=== PATIENT | female | born 1995 | race Caucasian/White ===

== ENCOUNTER 2020-10-10 16:12 | Observation (INO) | payer OTHER, SELFPAY ==
[2020-10-10 16:39] VITALS: BP 137/94; PULSE 124; RESP 20; TEMP 36.9; O2SAT 99; BMI 29.2
[2020-10-10 20:15] VITALS: BP 121/71; PULSE 74; RESP 14; O2SAT 99
[2020-10-10 20:40] LABS: Add Manual Diff / Slide Review NO; Basophils Absolute Auto 100 /uL (0-100); Basophils Percent Auto 0.9 % (0-2); Eosinophils Absolute Auto 600 /uL (0-450); Eosinophils Percent Auto 4.9 % (2-4); Hematocrit 38.5 % (36-46); Hemoglobin 12.8 g/dL (12.0-16.0); Lymphocytes Absolute Auto 4900 /uL (1100-4500); Lymphocytes Percent Auto 41.6 % (25-40); Mean Corpuscular HGB Conc 33.4 % (30-36); Mean Corpuscular Hemoglobin 28.9 PG (26-34); Mean Corpuscular Volume 86.4 fL (80-100); Monocytes Absolute Auto 800 /uL (0-900); Monocytes Percent Auto 6.4 % (3-14); Neutrophils Absolute Auto 5500 /uL (1500-7000); Neutrophils Percent Auto 46.2 % (50-75); Platelet Count 338 X10^3/uL (150-400); Prothrombin Time 11.1 SECONDS (10.1-12.7); Red Blood Cell Count 4.45 X10^6/uL (4.0-5.2); White Blood Cell Count 11.8 X10^3/uL (4.5-11.0)
[2020-10-10 20:42] LABS: PTT Partial Thromboplastin Tim 35 SECONDS (26.4-36.2)
[2020-10-10 20:44] LABS: Alanine Aminotransferase 15 IU/L (<35); Albumin 4.7 g/dL (3.5-5.0); Albumin Globulin Ratio 1.3 (1.0-2.8); Alkaline Phosphatase 76 U/L (38-126); Aspartate Aminotransferase 25 IU/L (14-36); BUN Creatinine Ratio 17.2 (6-22); Bilirubin Total 0.3 mg/dL (0.2-1.3); Blood Urea Nitrogen 11 mg/dL (7-17); Calcium 9.8 mg/dL (8.4-10.2); Carbon Dioxide 25 mmol/L (22-32); Chloride 104 mmol/L (98-107); Estimated Glomerular Filt Rate > 60.0 mL/min (>60); Globulin 3.5 g/dL (1.7-4.1); Glucose 81 mg/dL (70-100); HEMOLYSIS < 15 (0-50); Lipase 57 U/L (23-300); Potassium 3.7 mmol/L (3.4-5.1); Sodium 137 mmol/L (137-145); Total Protein 8.2 g/dL (6.3-8.2)
[2020-10-10 21:41] LABS: RBC Urine None Seen (0-5/HPF)
[2020-10-10 21:48] LABS: Squamous Epithelial Cell Urine 1-5 /HPF (0-5/HPF); WBC Urine 1-5/HPF (0-5/HPF)
[2020-10-10 21:49] LABS: Bacteria Urine Many (>30); Calcium Oxalate Crystals Urine Few; Culture Indicated Urine Specimen Cultured
--- NOTE | 2020-10-10 21:57 | DI.CT.S_ITS ---
PROCEDURE: CT ABDOMEN PELVIS W CON INDICATIONS: rlq pain TECHNIQUE: After the administration of intravenous contrast, 5 mm thick sections acquired from the diaphragm to the symphysis. 5 mm coronal and sagittal reformats were acquired. For radiation dose reduction, the following was used: automated exposure control, adjustment of mA and/or kV according to patient size. COMPARISON: [facility], MR, MR LUMBAR SPINE WITHOUT CONTRAST, 11/15/2017, 12:29. FINDINGS: Image quality: Excellent. ABDOMEN: Lung bases: 4 millimeter left lower lobe pulmonary nodule (series 3; image 6). In addition there is a perifissural 3 millimeter nodule within the right middle lobe (3; 9) which may represent a lymph node. The lung bases are otherwise clear. Heart size is normal. Solid organs: Liver is normal in size and enhancement. Gallbladder is unremarkable. Biliary system is non dilated. Pancreas enhances normally. Spleen is normal in size and enhancement. Small splenule. No adrenal nodules. Kidneys demonstrate normal size and enhancement, without hydronephrosis. Peritoneum and bowel: Stomach and small bowel are unremarkable without evidence of obstruction, focal wall thickening, or surrounding inflammation. The appendix is noted to be enlarged at 9 millimeters. No significant adjacent inflammation or fluid collection. Moderate stool burden. Nodes and vessels: No retroperitoneal or mesenteric adenopathy by size criteria. Aorta and inferior vena cava are normal in size. Miscellaneous: No ventral hernias. PELVIS: Genitourinary: Bladder wall thickness is normal. 2.4 and 2.2 centimeter cystic lesions within the right ovary. Miscellaneous: No inguinal hernias or adenopathy. Bones: No suspicious bony lesions. No vertebral body compression fractures. IMPRESSION: Dilated appendix measuring 9 millimeters without significant adjacent inflammation. This is suggestive of early appendicitis. 2.4 and 2.2 centimeter right ovarian cystic lesions. Agree with preliminary report. Dictated by: Joseph Weaver D.O. on 10/11/2020 at 7:36 Approved by: Joseph Weaver D.O. on 10/11/2020 at 7:44
--- NOTE | 2020-10-10 22:31 | ED_ITS ---
HPI - Abdominal Pain General Chief Complaint: Abdominal Pain Stated Complaint: sharp pains right side Time Seen by Provider: 10/10/20 21:56 Source: patient Mode of arrival: Family Vehicle Limitations: no limitations History of Present Illness HPI narrative: Patient is a 25-year-old healthy female who complaints of a bdominal pain that started yesterday. She says that it started around her umbilicus is and has progressed to her right lower quadrant today. She has had decreased appetite but is able to eat lunch today around 130. She denies any nausea or vomiting and is currently afebrile. She denies any painful or frequent urination and no flank pain. MD complaint: abdominal pain Onset (ago): day(s) Location: RLQ Severity: moderate Quality: aching and sharp Related Data Allergies Allergy/AdvReac Type Severity Reaction Status Date / Time No Known Drug Allergies Allergy Verified 10/10/20 16:39 Review of Systems Review of Systems Narrative: GENERAL: Denies chills, fatigue, malaise, fever, sweats, travel HEENT: Denies sinus pain, ear pain, sore throat, difficulty swallowing, neck pain RESPIRATORY: Denies dyspnea, cough, wheezing, hemoptysis, sputum. CARDIOVASCULAR: Denies chest pain, palpitations, orthopnea, edema GASTROINTESTINAL: See HPI : Denies dysuria, frequency, incontinence, hematuria, urinary retention, flank pain. MUSCULOSKELETAL: Denies weakness, joint pain, or bony pain SKIN: No rash, no erythema, no pruritus NEUROLOGIC: Denies weakness, dizziness, headache, numbness, change in speech, confusion PSYCHIATRIC: No concerning psychosocial issues. 12 point review of systems is negative except for those stated above and HPI Patient History Medical History Patient denies medical problems Social History Smoking Status: Current every day smoker Smoking Status: Current every day smoker tobacco type: cigarettes alcohol intake frequency: holidays/special occasions only Substance Use Type: does not use Exam Initial Vital Signs Initial Vital Signs: Vital Signs Temperature 98.5 F 10/10/20 16:39 Pulse Rate 124 H 10/10/20 16:39 Respiratory Rate 20 10/10/20 16:39 Blood Pressure 137/94 H 10/10/20 16:39 Pulse Oximetry 99 05/01/21 16:39 GENERAL: alert well-appearing 25-year-old female in no acute distress HEENT: Head atraumatic,EOMI, pupils reactive, face symmetric, [moist] mucous membranes CARDIOVASCULAR: Regular rate and rhythm without murmurs, rubs or gallops. RESPIRATORY: Breath sounds equal bilaterally, no wheezes rales or rhonchi. ABDOMEN: Soft, tender right lower quadrant, positive Rovsing sign, negative Lerner sign no right upper quadrant pain EXTREMITIES: Normal range of motion, no clubbing or edema. Neurovascularly intact NEUROLOGICAL: Alert and oriented x4.Normal gait and speech. SKIN: Warm, dry, no laceration, no petechiae, no rashes or lesions. Course Orders Ordered: ED Orders 10/10/20 19:53 Complete Blood Count AUTO DIFF Stat Comprehensive Metabolic Panel Stat Lipase Stat Partial Thromboplastin Time Stat Prothrombin Time INR Stat 10/10/20 21:33 Urine Culture Stat Urine Microscopic Stat 10/10/20 21:57 CT abdomen pelvis w con Stat Discontinued Medications Piperacillin/Tazobactam/Dextrose (Zosyn) 4.5 gm in 100 mls @ 200 mls/hr IV NOW JANETTE Piperacillin Sod/Tazobactam (Sod 4.5 gm/ Sodium Chloride) 100 mls @ 200 mls/hr IV NOW ONE Stop: 10/10/20 23:59 Last Admin: 10/10/20 23:38 Dose: 200 mls/hr Documented by: KELSIE Morphine Sulfate (Morphine 2 Mg/Ml Inj) 2 mg IV NOW ONE Stop: 10/10/20 21:58 Last Admin: 10/10/20 22:37 Dose: 2 mg Documented by: KELSIE Vital Signs Vital signs: Vital Signs - 8 hr 10/10/20 16:39 10/10/20 20:15 Temperature 98.5 F Pulse Rate 124 H 74 Respiratory Rate 20 14 Blood Pressure 137/94 H 121/71 Pulse Oximetry 99 99 MDM - Abdominal Pain Lab Data Attestation: I reviewed the patient's lab results. Result diagrams: 10/10/20 19:53 10/10/20 19:53 Labs: Lab Results 10/10/20 10/10/20 10/10/20 Range/Units 19:53 19:53 19:53 WBC 11.8 H (4.5-11.0) X10^3/uL RBC 4.45 (4.0-5.2) X10^6/uL Hgb 12.8 (12.0-16.0) g/dL Hct 38.5 (36-46) % MCV 86.4 (80-100) fL MCH 28.9 (26-34) PG MCHC 33.4 (30-36) % RDW 13.0 (11.6-14.8) % Plt Count 338 (150-400) X10^3/uL Neut % (Auto) 46.2 L (50-75) % Lymph % (Auto) 41.6 H (25-40) % [place] % (Auto) 6.4 (3-14) % Eos % (Auto) 4.9 H (2-4) % Baso % (Auto) 0.9 (0-2) % Neut # (Auto) 5500 (4995-3524) /uL Lymph # (Auto) 4900 H (7029-5331) /uL [place] # (Auto) 800 (0-900) /uL Eos # (Auto) 600 H (0-450) /uL Baso # (Auto) 100 (0-100) /uL PT 11.1 (10.1-12.7) SECONDS INR 1.0 (0.9-1.3) APTT 35 (26.4-36.2) SECONDS Sodium 137 (137-145) mmol/L Potassium 3.7 (3.4-5.1) mmol/L Chloride 104 (98-107) mmol/L Carbon Dioxide 25 (22-32) mmol/L BUN 11 (7-17) mg/dL Creatinine 0.64 (0.52-1.04) mg/dL Estimated GFR > 60.0 (>60) mL/min BUN/Creatinine Ratio 17.2 (6-22) Glucose 81 (70-100) mg/dL Calcium 9.8 (8.4-10.2) mg/dL Total Bilirubin 0.3 (0.2-1.3) mg/dL AST 25 (14-36) IU/L ALT 15 (<35) IU/L Alkaline Phosphatase 76 (38-126) U/L Total Protein 8.2 (6.3-8.2) g/dL Albumin 4.7 (3.5-5.0) g/dL Globulin 3.5 (1.7-4.1) g/dL Albumin/Globulin Ratio 1.3 (1.0-2.8) Lipase 57 (23-300) U/L Urine RBC (0-5/HPF) Urine WBC (0-5/HPF) Ur Squamous Epith Cells (0-5/HPF) Calcium Oxalate Crystal Urine Bacteria (None) Ur Culture Indicated? 10/10/20 Range/Units 21:33 WBC (4.5-11.0) X10^3/uL RBC (4.0-5.2) X10^6/uL Hgb (12.0-16.0) g/dL Hct (36-46) % MCV (80-100) fL MCH (26-34) PG MCHC (30-36) % RDW (11.6-14.8) % Plt Count (150-400) X10^3/uL Neut % (Auto) (50-75) % Lymph % (Auto) (25-40) % [place] % (Auto) (3-14) % Eos % (Auto) (2-4) % Baso % (Auto) (0-2) % Neut # (Auto) (2432-0924) /uL Lymph # (Auto) (3456-7930) /uL [place] # (Auto) (0-900) /uL Eos # (Auto) (0-450) /uL Baso # (Auto) (0-100) /uL PT (10.1-12.7) SECONDS INR (0.9-1.3) APTT (26.4-36.2) SECONDS Sodium (137-145) mmol/L Potassium (3.4-5.1) mmol/L Chloride (98-107) mmol/L Carbon Dioxide (22-32) mmol/L BUN (7-17) mg/dL Creatinine (0.52-1.04) mg/dL Estimated GFR (>60) mL/min BUN/Creatinine Ratio (6-22) Glucose (70-100) mg/dL Calcium (8.4-10.2) mg/dL Total Bilirubin (0.2-1.3) mg/dL AST (14-36) IU/L ALT (<35) IU/L Alkaline Phosphatase (38-126) U/L Total Protein (6.3-8.2) g/dL Albumin (3.5-5.0) g/dL Globulin (1.7-4.1) g/dL Albumin/Globulin Ratio (1.0-2.8) Lipase (23-300) U/L Urine RBC None seen (0-5/HPF) Urine WBC 1-5/hpf (0-5/HPF) Ur Squamous Epith Cells 1-5 /hpf (0-5/HPF) Calcium Oxalate Crystal Few H Urine Bacteria Many (>30) H (None) Ur Culture Indicated? Specimen cultured Point of care testing: Point of Care Testing Test Results Negative Urine Dip Bedside Urine Glucose Negative Bedside Urine Bilirubin - Negative Bedside Urine Ketone +/- 5 Urine Specific [place] 1.030 Bedside Urine Occult Blood - Negative Bedside Urine pH 6 Bedside Urine Protein - Negative Bedside Urine Urobilinogen - Negative Bedside Urine Nitrite + Positive Bedside Urine Leukocytes - Negative Esterase Imaging Data CT scan - abdomen/pelvis: Radiologist's Impression: Preliminary report: 2.6 and 2.5 cm dilated complex right ovarian cyst. At 9 mm dilated appendix suggesting early acute appendicitis. MDM Narrative Medical decision making narrative: 11:[address] Pena updated patient's s ymptoms and test results agrees with observation and Zosyn Discharge Plan Departure Patient Disposition: Admitted as Observation Admit Date/Time: 10/10/20 22:59 Admit Provider: Jerod Pena
[2020-10-10] MEDS: MORPHINE 2 MG/ML INJ IV (22:37)
[2020-10-10] MEDS: PIPERACILLIN/TAZO 4.5 GM in SODIUM CHLORIDE 0.9% 100 ML 200 ML IV (23:38)
[2020-10-10 23:57] VITALS: BP 119/81; PULSE 93; RESP 16; O2SAT 93
[2020-10-11] VITALS (17 sets, daily range): BP systolic 105–131; BP diastolic 61–82; PULSE 78–119; RESP 8–22; TEMP 36.1–37.1; O2SAT 95–100; BMI 22.9
--- NOTE | 2020-10-11 | PATH_ITS ---
[facility] Accession Number: [id number] . 01 Material submitted: . appendix - APPENDIX . 02 Diagnosis: Appendix, Appendectomy: Mild acute appendicitis. No evidence of neoplasm. [facility] 10/16/2020 1115 Local . 02 Electronically signed: . Nahun Dallas MD, PhD, Pathologist NPI- [id number] . 01 Gross description: . The specimen is received in formalin, labeled appendix and consists of a 6.5 cm in length by 1.0 cm in diameter vermiform appendix with attached varela-yellow lobulated mesoappendix measuring 4.0 x 1.5 x 0.8 cm. The serosa is varela-pink and smooth. Sectioning reveals a varela mucosa and a lumen measuring 0.5 cm in diameter. The vermiform appendix is entirely submitted to include the en face margin (blue) and bisected tip in cassettes A1-A4. ([id number]) /[facility] 10/13/2020 1609 Local . 02 Pathologist provided ICD-10: K35.80 . 02 CPT . 379043 Performed at: 01 [facility] [address] [place] [address], [place], [place] [id number] MD Jin Vasquez MD Phone: [phone] Performed at: 02 [facility] [address] [place], [place] [id number] MD Indu Horton MD Phone: [phone]
[2020-10-11] MEDS: SODIUM CHLORIDE 0.9% 1,000 ML 125 ML IV (01:21)
[2020-10-11] MEDS: MORPHINE 2 MG/ML INJ IV ×3 (01:27→06:50)
[2020-10-11 01:33] LABS: COVID19 - ADMIT (NP swab/PCR) Negative (Negative)
[2020-10-11] MEDS: NICOTINE 21 MG PATCH TOP (02:42)
[2020-10-11] MEDS: ONDANSETRON 4 MG/2 ML INJ IV ×2 (04:42→11:00)
[2020-10-11] MEDS: ACETAMINOPHEN 325 MG TABLET 975 MG PO (08:40)
--- NOTE | 2020-10-11 09:04 | P.HP_ITS ---
History of Present Illness History of Present Illness Date Patient Seen: 10/11/20 Time Patient Seen: 09:06 Chief complaint: sharp pains right side Narrative: 25-year-old female admitted to the hospital for acute appendicitis. She developed abdominal pain located at her umbilicus which progressed to her right lower quadrant. She presented to the emergency room last night laboratory studies demonstrated leukocytosis of 12 remainder of her labs were unremarkable. CT abdomen pelvis demonstrates acute appendicitis without abscess or free air. She received IV fluids and Zosyn in the emergency room. No prior surgical history. Patient History Medical History Patient denies medical problems Family & Social History Social History: household members significant other Prior Living Arrangements House Safety & Behavioral: Feels Safe in Current Yes Environment Been Physically Hurt or No Threatened By a Person Suicidal Ideation Description None Suicide Plan Description No Plan Tobacco & Substance use: Tobacco type cigarettes Smoking Status Current every day smoker Smoking packs per day 1.0 alcohol intake current alcohol intake frequency holiday/special occasion Substance Use Type does not use Meds Home Medications and Allergies Home Medications Medication Instructions Recorded Confirmed Type No Known Home Medications 10/11/20 10/11/20 History Allergies Allergy/AdvReac Type Severity Reaction Status Date / Time No Known Drug Allergies Allergy Verified 10/10/20 16:39 Review of Systems Review of Systems ROS: Yes All systems reviewed with the patient and are negative except as otherwise documented Exam Vital Signs (past 8 hours): - 10/11/20 04:08 10/11/20 08:25 Temperature 97.9 F 98.7 F Pulse Rate 78 95 H Respiratory Rate 16 14 Blood Pressure 118/73 114/73 Pulse Oximetry 98 99 Oxygen Delivery Method Room Air Oxygen Flow Rate 0 Narrative Exam Narrative: GENERAL-well developed adult woman, no acute distress HEENT-no scleral icterus, hearing intact NECK-no JVD, trachea midline CVS- regular rate, no peripheral edema RESP-unlabored respiratory effort, no audible wheezing GI-tender right lower quadrant no peritonitis MSK-no cyanosis or clubbing, extremities without deformity SKIN-warm, dry NEURO-alert and oriented, no focal deficits PYSCH-Appropriate mood and affect Objective Labs Result Diagrams: 10/10/20 19:53 10/10/20 19:53 Labs: Laboratory Results - last 24 hr 10/10/20 10/10/2021 19:53 19:53 19:53 WBC 11.8 H RBC 4.45 Hgb 12.8 Hct 38.5 MCV 86.4 MCH 28.9 MCHC 33.4 RDW 13.0 Plt Count 338 Neut % (Auto) 46.2 L Lymph % (Auto) 41.6 H [place] % (Auto) 6.4 Eos % (Auto) 4.9 H Baso % (Auto) 0.9 Neut # (Auto) 5500 Lymph # (Auto) 4900 H [place] # (Auto) 800 Eos # (Auto) 600 H Baso # (Auto) 100 PT 11.1 INR 1.0 APTT 35 Sodium 137 Potassium 3.7 Chloride 104 Carbon Dioxide 25 BUN 11 Creatinine 0.64 Estimated GFR > 60.0 BUN/Creatinine Ratio 17.2 Glucose 81 Calcium 9.8 Total Bilirubin 0.3 AST 25 ALT 15 Alkaline Phosphatase 76 Total Protein 8.2 Albumin 4.7 Globulin 3.5 Albumin/Globulin Ratio 1.3 Lipase 57 Urine RBC Urine WBC Ur Squamous Epith Cells Calcium Oxalate Crystal Urine Bacteria Ur Culture Indicated? SARS-CoV-2 (PCR) 10/10/20 10/11/20 21:33 00:38 WBC RBC Hgb Hct MCV MCH MCHC RDW Plt Count Neut % (Auto) Lymph % (Auto) [place] % (Auto) Eos % (Auto) Baso % (Auto) Neut # (Auto) Lymph # (Auto) [place] # (Auto) Eos # (Auto) Baso # (Auto) PT INR APTT Sodium Potassium Chloride Carbon Dioxide BUN Creatinine Estimated GFR BUN/Creatinine Ratio Glucose Calcium Total Bilirubin AST ALT Alkaline Phosphatase Total Protein Albumin Globulin Albumin/Globulin Ratio Lipase Urine RBC None seen Urine WBC 1-5/hpf Ur Squamous Epith Cells 1-5 /hpf Calcium Oxalate Crystal Few H Urine Bacteria Many (>30) H Ur Culture Indicated? Specimen cultured SARS-CoV-2 (PCR) Negative Assessment & Plan Assessment and plan (1) Acute appendicitis: Qualifiers: Acute appendicitis type: with localized peritonitis Appendicitis abscess presence: without abscess Appendicitis gangrene presence: without gangrene Appendicitis perforation presence: without perforation Qualified Code(s): K35.30 - Acute appendicitis with localized peritonitis, without perforation or gangrene Status: Acute Assessment & Plan narrative: 25-year-old healthy female with acute appendicitis. CT abdomen pelvis and laboratory studies reviewed demonstrates acute appendicitis without abscess and mild leukocytosis.. -laparoscopic appendectomy Discussed the nature of acute appendicitis and is management including both medical and operative. Recommended that we proceed with a laparoscopic appendectomy. Technical details of the procedure were discussed with the patient. Operative risks including bleeding, infection, damage to surrounding structures, conversion to open were discussed. Her questions have been answered and she is in agreement with this plan. Quality VTE Deep Vein Thrombosis/Pulmonary Embolism Present on Admission: No
--- NOTE | 2020-10-11 09:05 | PC.NURSE ---
Addendum entered by Eda Shanks R.N. 10/11/20 12:28: Received report from Zeenat MISHRA in PACU. At 1148 pt returned to floor from PACU. Awake and alert, reports a decrease in pain compared to pre-op, 11/19. Abdomen has 3 lap sites, covered in steri strips. Tolerating fluids and snacks, no nausea. Call light in reach, boyfriend at bedside. Original Note: Informed receiving RN of pt's anxiousness for surgery, prior to entering pt's room. Pt left via bed to pre-op unit accompanied by TAD Epperson. Boyfriend stayed in pt room.
[2020-10-11] MEDS: SCOPOLAMINE 1 PATCH TOP (09:12)
[2020-10-11] MEDS: LACTATED RINGERS 1,000 ML 42 ML IV (09:22)
[2020-10-11] MEDS: PIPERACILLIN-TAZO 3.375 GM/50 ML FROZ.PIGGY IV (09:30)
--- NOTE | 2020-10-11 09:49 | SUR.OPER ---
Supine on padded OR bed, head on pillow, left arm padded and tucked at side, right arm <90 degrees on padded armboard. Legs uncrossed, safety belt at thigh, tape over blanket over lower legs .
[2020-10-11] MEDS: BUPIVACAINE 0.25% (PF) VIAL 30 ML INJ (10:03)
--- NOTE | 2020-10-11 10:37 | PM.OP.1 ---
Operative Date/Time/Diagnoses Date of procedure: 10/11/20 Time of procedure: 10:37 Pre-op diagnosis: Acute appendicitis Post-op diagnosis: same Procedure & Clinicians Procedure: Laparoscopic appendectomy Same procedure as scheduled: Yes Indications: Acute appendicitis Surgeon: Jerod Pena Click Yes if Unassisted: Yes Anesthesia Type: General Operative Notes Findings: Acute non perforated appendicitis Specimen(s): other (Appendix) Estimated Blood Loss (mL): 10 Procedure in detail: Patient was brought to the operating room placed supine on the table. Bilateral lower extremity compression devices were applied. Anesthesia was induced and they intubated with an endotracheal tube. They received 3.375 g of Zosyn prior to skin incision. The left arm was tucked and appropriately padded. They were prepped and draped in sterile fashion. Time-out was performed. An infraumbilical incision was made the umbilical stalk was grasped and elevated and incision was made and the abdomen was entered atraumatically. A 12 mm balloon trocar was then placed through the incision and pneumoperitoneum of 14 mm Hg was established. The scope was then inserted and the abdomen inspected, there was no evidence of injury upon entry. Two 5 mm ports were placed under direct visualization, one in the left lower quadrant and second in the lower midline. A thorough laparoscopic evaluation was performed inspecting all four quadrants. The patient was then tilted right side up. The small bowel was then swept to the upper aspect of the abdomen. The tenie were followed to the base of the cecum where the appendix was identified. The appendix was was mobilized from its lateral attachments. It was acutely inflamed but not perforated. The appendix was grasped and a window within the mesentery was made at the base of the appendix using the [place] dissector with care to avoid injuring the cecum. The mesoappendix was then divided using the endo-stapler with a staple length of 2.5 mm-white load. The mesenteric staple line was inspected for hemostasis. The appendix was then amputated flush at the cecum using the endo-stapler blue load. The specimen was retrieved through the 10 mm infra-umbilical port. The right paracolic gutter and the pouch of Mk were irrigated The 5 mm ports were then removed under direct visualization. The umbilical fascial incision was closed with 0 Vicryl in a figure-eight fashion. The skin wounds were irrigated and closed with 4-0 Monocryl followed by the application of Dermabond. Sponge instrument count at the end of the operation was correct. The patient tolerated procedure well was extubated and transferred to the postoperative care unit in stable condition. Complications: none Post-operative Condition: stable Disposition: same day surgery
[2020-10-11] MEDS: HYDROMORPHONE 2 MG INJ IV ×2 (11:00→11:11)
--- NOTE | 2020-10-11 11:10 | CM.IDA ---
Initial DCP Assessment Note Pt is a 25 yo female, resident of [place], presented w/abd pain last night, now just through a lap appy w/ Dr Pena PCP: Not listed Payer: Gino Reviewed chart, patient off the floor this morning in the OR. Pt discussed in multidisciplinary rounds this morning. Patient expected to return home later this afternoon w/S.O. Patient 25 yo. indp and active at baseline. No needs expected from DC planning team although will remain available in case this changes today. IVETT Hoyt Discharge Planning/Care Management CM Discharge Assessment Start: 10/11/20 11:07 Freq: Status: Active Protocol: Document 10/11/20 11:08 MARIA D (Rec: 10/11/20 11:10 MARIA D [id number]) Discharge Planning Assessment Assigned [employer] IVETT Hopkins DPOA/Assigned Designee Name None listed Advance Directives? No History Provided By Patient Prior Living Arrangements House Household Members significant other Type of transporation used prior to Drives own vehicle admit Independent with ADL's Yes Is patient alert and oriented? Yes Discharge Plan Home Transportation Arrangement S.O. Referrals Initiated None needed
[2020-10-11] MEDS: OXYCODONE IR 5 MG TABLET PO (11:20)
[2020-10-11] MEDS: ACETAMINOPHEN 325 MG TABLET 650 MG PO (12:21)
[2020-10-11] MEDS: KETOROLAC 30 MG/ML VIAL IV (13:41)
--- NOTE | 2020-10-11 15:05 | PC.NURSE ---
Discharge education given to pt and significant other, discussed- f/u appts, medications, diet, activity, worsening symptoms. All questions answered. IV removed, intact, tolerated well. Pt dressed independently. To call when ready to be escorted to POV via w/c.
== END 2020-10-11 15:15 | disposition home or self-care (01) ==
LOC: ED 21:56 → AC 23:00
PROVIDERS: Admitting Provider Surgery; Emergency Provider Emergency Medicine; Referring Provider Emergency Medicine; Visit Provider Surgery
PROC: 0DTJ4ZZ Resection of Appendix, Percutaneous Endoscopic Approach (ICD-10-PCS; CPT 44970; principal; 2020-10-11 09:00)
DX: K35.80 Unspecified acute appendicitis (principal); F17.210 Nicotine dependence, cigarettes, uncomplicated; K21.9 Gastro-esophageal reflux disease without esophagitis; F41.9 Anxiety disorder, unspecified; Z20.822 Contact with and (suspected) exposure to COVID-19
CPT/HCPCS: 44970; 36415; 74177; 80053; 81003; 81015; 81025; 83690; 85025; 85610; 85730; 87077; 87086; 87186; 87635; 96361; 96365; 96375; 96376; 99219; 99284; C9803; G0378; J1100; J1170; J1885; J2250; J2270; J2405; J2543; J2704; Q9967

== ENCOUNTER 2023-08-14 17:07 | Emergency (ER) | payer BC, SELFPAY ==
[2020-10-11 01:04] VITALS: BMI 22.9
[2023-08-14 17:23] VITALS: BP 140/99; PULSE 123; RESP 16; TEMP 36.8; O2SAT 100; BMI 29.2
[2023-08-14 18:00] LABS: Add Manual Diff / Slide Review NO; Basophils Absolute Auto 100 /uL (0-100); Basophils Percent Auto 0.5 % (0-2); Eosinophils Absolute Auto 200 /uL (0-450); Eosinophils Percent Auto 1.5 % (2-4); Hematocrit 38.6 % (36-46); Hemoglobin 13.2 g/dL (12.0-16.0); Lymphocytes Absolute Auto 3900 /uL (1100-4500); Lymphocytes Percent Auto 23.9 % (25-40); Mean Corpuscular HGB Conc 34.1 % (30-36); Mean Corpuscular Hemoglobin 29.5 PG (26-34); Mean Corpuscular Volume 86.4 fL (80-100); Monocytes Absolute Auto 600 /uL (0-900); Monocytes Percent Auto 3.8 % (3-14); Neutrophils Absolute Auto 11400 /uL (1500-7000); Neutrophils Percent Auto 70.3 % (50-75); Platelet Count 355 X10^3/uL (150-400); Red Blood Cell Count 4.47 X10^6/uL (4.0-5.2); Red Cell Distribution Width 13.3 % (11.6-14.8); White Blood Cell Count 16.2 X10^3/uL (4.5-11.0)
--- NOTE | 2023-08-14 18:08 | ED_ITS ---
HPI - Headache General Chief Complaint: Headache Stated Complaint: headache, dizziness Time Seen by Provider: 08/14/23 17:59 Mode of arrival: Ambulatory History of Present Illness HPI Narrative: So 28-year-old woman seen recently by her neurologist with Chiari malformation presents with 3 days of increasing headache, persistent nausea, decreased left- sided peripheral vision every morning that does not improve by the evening, has been referred by her [facility] neurologist to the [facility]. She notes that she has a headache daily but after seeing the neurologist this afternoon, she was having increasing pressure in the occiput and behind her eyes. This is what prompted her ER visit today. She denies fevers, cough, chills. No recent upper respiratory symptoms. No abdominal pain, dysuria, flank pain, skin changes. Related Data Previous Rx's Medication Instructions Recorded acetaminophen 325 mg capsule 650 mg (2 x 325 mg) PO QID PRN 10/11/20 (Tylenol) pain #60 caps docusate sodium 100 mg capsule 100 mg PO BID #30 caps 10/11/20 (Colace) ibuprofen 200 mg tablet 400 mg (2 x 200 mg) PO Q6H #60 tabs 10/11/20 oxycodone 5 mg tablet 5 mg PO Q8H PRN pain #30 tabs 10/11/20 Allergies Allergy/AdvReac Type Severity Reaction Status Date / Time No Known Drug Allergies Allergy Verified 10/26/20 14:58 Review of Systems Review of Systems Narrative: Pertinent positive and negative findings as per HPI Patient History Medical History (Updated 08/15/23 @ 01:42 by Lorin Arguelles MD) Chiari malformation Social History household members: significant other Smoking Status: Current every day smoker alcohol intake: current Smoking Status: Current every day smoker tobacco type: cigarettes alcohol intake frequency: holidays/special occasions only Substance Use Type: does not use Exam Initial Vital Signs Initial Vital Signs: Vital Signs Temperature 98.3 F 08/14/23 17:23 Pulse Rate 123 H 08/14/23 17:23 Respiratory Rate 16 08/14/23 17:23 Blood Pressure 140/99 H 08/14/23 17:23 Pulse Oximetry 100 08/14/23 17:23 Oxygen Delivery Method Room Air 08/14/23 17:23 General: Appears to be in pain, dark glasses on squinting when the light goes on. Cooperative and Able to give a complete and coherent history. Well- nourished well-developed HEENT: Moist mucous membranes, normal sclera with reactive pupils, she does have extraocular eye movements intact in this does cause pain Neck: No cervical adenopathy. She does not have apparent nuchal rigidity Respiratory: Lungs are clear to auscultation, no wheezing no rales no rhonchi. Full and symmetrical air movement Cardiac: Regular rate and rhythm no murmurs no bruits Abdomen: Soft, nontender, good bowel tones, no flank pain Skin: Warm and dry, no rashes Neurologic: Grossly neurologically intact with no obvious asymmetries or abnormalities Extremities: No trauma, well perfused Psych: Cooperative, appropriate insight and affect Course Orders Ordered: ED Orders 08/14/23 17:36 EKG-12 Lead Stat 08/14/23 17:49 Complete Blood Count AUTO DIFF Stat Comprehensive Metabolic Panel Stat 08/14/23 22:42 Lactate (Lactic Acid) Stat 08/14/23 23:00 Blood Culture Stat 08/15/23 01:23 Urine Culture Stat Urine Microscopic Stat Hydromorphone HCl (Hydromorphone 0.5 Mg Inj) 0.5 mg IV Q15MIN PRN PRN Reason: Pain, Last Admin: 08/14/23 22:35 Dose: 0.5 mg Documented By: VANESSA Discontinued Medications Sodium Chloride (Normal Saline 0.9%) 1,000 mls @ 1,000 mls/hr IV BOLUS ONE Stop: 08/14/23 23:26 Last Infusion: 08/15/23 00:40 Dose: Infused Documented By: Admin: 08/14/23 22:35 Dose: 1,000 mls/hr Documented By: VANESSA Ceftriaxone Sodium 2,000 mg/ (Sodium Chloride) 100 mls @ 200 mls/hr IV NOW ONE Stop: 08/14/23 22:28 Last Infusion: 08/15/23 00:25 Dose: Infused Documented By: Admin: 08/14/23 23:26 Dose: 200 mls/hr Documented By: VANESSA Ketorolac Tromethamine (Ketorolac 30 Mg/Ml Vial) 15 mg IV NOW ONE Stop: 08/14/23 22:28 Last Admin: 08/14/23 22:35 Dose: 15 mg Documented By: VANESSA Ondansetron HCl (Ondansetron 4 Mg/2 Ml Inj) 4 mg IV NOW ONE Stop: 08/14/23 22:21 Last Admin: 08/14/23 22:24 Dose: 4 mg Documented By: VANESSA Vital Signs Vital signs: Vital Signs - 8 hr 08/15/23 01:25 Temperature 98.1 F Pulse Rate 78 Respiratory Rate 20 Blood Pressure 127/67 Pulse Oximetry 99 Oxygen Delivery Method Room Air MDM - Headache Lab Data 08/14/23 17:49 08/14/23 17:49 Labs: Lab Results 08/14/23 08/14/23 08/15/23 Range/Units 17:49 22:42 01:23 WBC 16.2 H (4.5-11.0) X10^3/uL RBC 4.47 (4.0-5.2) X10^6/uL Hgb 13.2 (12.0-16.0) g/dL Hct 38.6 (36-46) % MCV 86.4 (80-100) fL MCH 29.5 (26-34) PG MCHC 34.1 (30-36) % RDW 13.3 (11.6-14.8) % Plt Count 355 (150-400) X10^3/uL Neut % (Auto) 70.3 (50-75) % Lymph % (Auto) 23.9 L (25-40) % Fountain % (Auto) 3.8 (3-14) % Eos % (Auto) 1.5 L (2-4) % Baso % (Auto) 0.5 (0-2) % Neut # (Auto) 11946 H (8437-1040) /uL Lymph # (Auto) 3900 (0830-1262) /uL Fountain # (Auto) 600 (0-900) /uL Eos # (Auto) 200 (0-450) /uL Baso # (Auto) 100 (0-100) /uL Sodium 139 (137-145) mmol/L Potassium 3.8 (3.4-5.1) mmol/L Chloride 108 H (98-107) mmol/L Carbon Dioxide 26 (22-32) mmol/L BUN 4 L (7-17) mg/dL Creatinine 0.50 L (0.52-1.04) mg/dL Estimated GFR > 60 (>60) mL/min BUN/Creatinine Ratio 8.0 (6-22) Glucose 90 (70-100) mg/dL Lactate 0.7 (0.7-2.1) mmol/L Calcium 9.2 (8.4-10.2) mg/dL Total Bilirubin 0.4 (0.2-1.3) mg/dL AST 25 (14-36) IU/L ALT 22 (<35) IU/L Alkaline Phosphatase 68 (38-126) U/L Total Protein 8.4 H (6.3-8.2) g/dL Albumin 4.7 (3.5-5.0) g/dL Globulin 3.7 (1.7-4.1) g/dL Albumin/Globulin Ratio 1.3 (1.0-2.8) Urine RBC 1-5/hpf (0-5/HPF) Urine WBC 1-5/hpf (0-5/HPF) Ur Squamous Epith Cells 1-5 /hpf (0-5/HPF) Urine Bacteria Many (>30) H (None) Ur Culture Indicated? Specimen cultured Vol Urine Centrifuged 10ml (spun) MDM Narrative Medical decision making narrative: CC: Worsening headache with increased pressure behind her eyes and in the occiput Complicating co-morbidities: Recently diagnosed Chiari malformation, saw her neurologist this afternoon, has been referred to [facility] Data collected from: patient, parent Medical records reviewed: Only medical records for review are hospital records from an appendicitis in October of 2020 Differential considered: Worsening Venessa malformation, chronic headache, meningitis, viral syndrome Exam documented above, pertinent findings include: Patient definitely appears to be in pain. She has not describing describing nuchal rigidity. Remainder of exam is benign with no other obvious source for infectious etiology Lab Test results independently reviewed as above. Pertinent findings: CBC shows leukocytosis at 16.2 however she does not have a significant left shift. No anemia Chemistries do not show significant abnormalities Lactic acid is not elevated Urine has bacteria but no red cells white cells. She does not have dysuria, urine sample has been cultured. Will not treat with antibiotics at this time Consultations: Talked with Neurology on-call at [facility] this evening. They were able to review notes from this afternoon. Given findings blood work and exam this afternoon did not recommend any additional imaging this time. [place] that if the headache was moderately controlled discharge home would be safe. Did not recommend additional antibiotics. We will continue to work on the [facility] consultation Treatments: Fluids, Toradol, Zofran and 2 g of ceftriaxone were given Discussion: 28-year-old woman with long history of significant headache and headache syndrome recently diagnosed with Chiari malformation, followed by Neurology at [facility] with referral recently to the [facility]. Comes in today after neurology consultation this afternoon complaining of increasing pressure at the occiput and behind her eyes. She notes she is feeling somewhat better with medications. Feels she can get to sleep and is agreeable to discharge home. At this time I do not think that she has not infection, we will not continue antibiotics. Neurologist did not believe that lumbar puncture further workup would be appropriate or required this time. All of these findings as well as my discussion with Neurology reviewed with the patient. Questions are answered and she is safe for discharge Discharge Plan Departure Patient Disposition: Home Clinical Impression: Chiari malformation Headache Qualifiers: Headache type: unspecified Headache chronicity pattern: chronic headache I ntractability: intractable Qualified Code(s): R51.9 - Headache, unspecified Instructions: DI for Headache Activity Restrictions/Additional Instructions: Thank you for coming in tonight I am sorry that you are continuing to suffer with these headaches. I do not think that there are significant acute changes that would require hospitalization or additional imaging tonight. I have reviewed lab work on presentation with the neurologist on-call at [facility]. Their recommendation was to continue with current treatment. I wish you luck in following up with the [facility] and I hope that you are able to find a solution to these chronic debilitating headaches. Prescriptions: No Action ibuprofen 200 mg tablet 400 mg PO Q6H Qty: 60 0RF docusate sodium [Colace] 100 mg capsule 100 mg PO BID Qty: 30 0RF oxycodone 5 mg tablet 5 mg PO Q8H PRN (Reason: pain) Qty: 30 0RF acetaminophen [Tylenol] 325 mg capsule 650 mg PO QID PRN (Reason: pain) Qty: 60 0RF Referrals: Miscellaneous,Doctor, MD [Primary Care Provider] - Stand Alone Forms: Patient Portal/API
[2023-08-14 18:13] LABS: Alanine Aminotransferase 22 IU/L (<35); Albumin 4.7 g/dL (3.5-5.0); Albumin Globulin Ratio 1.3 (1.0-2.8); Alkaline Phosphatase 68 U/L (38-126); Aspartate Aminotransferase 25 IU/L (14-36); Bilirubin Total 0.4 mg/dL (0.2-1.3); Blood Urea Nitrogen 4 mg/dL (7-17); Calcium 9.2 mg/dL (8.4-10.2); Carbon Dioxide 26 mmol/L (22-32); Chloride 108 mmol/L (98-107); Estimated Glomerular Filt Rate > 60 mL/min (>60); Globulin 3.7 g/dL (1.7-4.1); Glucose 90 mg/dL (70-100); HEMOLYSIS < 15 (0-50); Potassium 3.8 mmol/L (3.4-5.1); Sodium 139 mmol/L (137-145); Total Protein 8.4 g/dL (6.3-8.2)
--- NOTE | 2023-08-14 20:00 | PC.NURSE ---
pt seen by her neurologist today but now her typical h/a has increased in severity with pain behind her eye
[2023-08-14] MEDS: ONDANSETRON 4 MG/2 ML INJ IV (22:24)
[2023-08-14] MEDS: HYDROMORPHONE 0.5 MG INJ IV (22:35)
[2023-08-14] MEDS: SODIUM CHLORIDE 0.9% 1,000 ML 1000 ML IV (22:35)
[2023-08-14] MEDS: KETOROLAC 30 MG/ML VIAL 15 MG IV (22:35)
[2023-08-14 23:07] LABS: Lactate (Lactic Acid) 0.7 mmol/L (0.7-2.1)
[2023-08-14] MEDS: cefTRIAXone 2,000 MG in SODIUM CHLORIDE 0.9% 100 ML 200 MG IV (23:26)
[2023-08-15 01:25] VITALS: BP 127/67; PULSE 78; RESP 20; TEMP 36.7; O2SAT 99
[2023-08-15 01:31] LABS: Bacteria Urine Many (>30); Culture Indicated Urine Specimen Cultured; RBC Urine 1-5/HPF (0-5/HPF); Squamous Epithelial Cell Urine 1-5 /HPF (0-5/HPF); Urine Volume 10mL (spun); WBC Urine 1-5/HPF (0-5/HPF)
[2023-08-15 01:50] VITALS: BP 114/74; PULSE 93; RESP 16; TEMP 36.6; O2SAT 99
== END 2023-08-15 01:51 | disposition home or self-care (01) ==
PROVIDERS: Emergency Medicine; Emergency Provider Emergency Medicine
DX: R51.9 Headache, unspecified (principal); Q07.00 Arnold-Chiari syndrome without spina bifida or hydrocephalus; R07.9 Chest pain, unspecified
CPT/HCPCS: 36415; 80053; 81015; 83605; 85025; 87040; 87077; 87086; 87186; 93005; 93010; 96365; 96375; 99284; J0696; J1170; J1885; J2405

== ENCOUNTER 2023-08-25 22:16 | Emergency (ER) | payer BC, SELFPAY ==
[2020-10-11 01:04] VITALS: BMI 22.9
[2023-08-25 22:18] VITALS: BP 148/92; PULSE 120; RESP 34; TEMP 36.3; O2SAT 100; BMI 29.2
[2023-08-25 22:33] VITALS: PULSE 125; RESP 28; O2SAT 100
[2023-08-25 23:00] VITALS: BP 146/87; PULSE 122; RESP 26; O2SAT 100
[2023-08-25 23:30] VITALS: BP 131/82; PULSE 117; RESP 20; O2SAT 99
[2023-08-26] VITALS (9 sets, daily range): BP systolic 98–116; BP diastolic 60–75; PULSE 89–108; RESP 13–24; O2SAT 98–100
--- NOTE | 2023-08-26 01:53 | ED_ITS ---
HPI - General Adult General Chief complaint: Shortness of Breath/Dyspnea Stated complaint: hard time breathing Time Seen by Provider: 08/26/23 00:17 Source: patient Mode of arrival: Ambulatory History of Present Illness HPI narrative: 28-year-old woman with a recent diagnosis of Chiari malformation, chronic headaches who has been taking amitriptyline as prescribed for her neurologist for the last 6 months. It had not been working all that well so he suggested she go from 25 mg to 50 mg. She did so tonight and within 20 minutes taking the 50 mg dose she developed palpitations, chest pain, tightness in her throat, felt her heart was beating out of her chest. She does not report dyspnea. Does not report that it caused headache, no nausea, vomiting or diarrhea. She has never had similar symptoms. She has not currently on any other medications and has not taken any of the [id number] medications or any energy drinks or herbal supplements today Related Data Previous Rx's Medication Instructions Recorded acetaminophen 325 mg capsule 650 mg (2 x 325 mg) PO QID PRN 10/11/20 (Tylenol) pain #60 caps docusate sodium 100 mg capsule 100 mg PO BID #30 caps 10/11/20 (Colace) ibuprofen 200 mg tablet 400 mg (2 x 200 mg) PO Q6H #60 tabs 10/11/20 oxycodone 5 mg tablet 5 mg PO Q8H PRN pain #30 tabs 10/11/20 Allergies Allergy/AdvReac Type Severity Reaction Status Date / Time amitriptyline AdvReac Severe prolonged Uncoded 08/26/23 02:05 QT Review of Systems Review of Systems Narrative: Pertinent positive and negative findings as per HPI Patient History Medical History (Updated 08/26/23 @ 02:10 by Lorin Arguelles MD) Prolonged QT interval Chiari malformation Social History household members: significant other Smoking Status: Current every day smoker alcohol intake: current Smoking Status: Current every day smoker tobacco type: cigarettes alcohol intake frequency: holidays/special occasions only Substance Use Type: does not use Exam Initial Vital Signs Initial Vital Signs: Vital Signs Temperature 97.4 F L 08/25/23 22:18 Pulse Rate 120 H 08/25/23 22:18 Respiratory Rate 34 H 08/25/23 22:18 Blood Pressure 148/92 H 08/25/23 22:18 Pulse Oximetry 100 08/25/23 22:18 Oxygen Delivery Method Room Air 08/25/23 22:18 General: Healthy appearing, in no acute distress. Able to give a complete and coherent history. Well-nourished well-developed HEENT: Moist mucous membranes, normal sclera with reactive pupils, Respiratory: Lungs are clear to auscultation, no wheezing no rales no rhonchi. Full and symmetrical air movement Cardiac: Tachycardic but otherwise Regular rate and rhythm no murmurs no bruits Abdomen: Soft, nontender, good bowel tones, no flank pain Skin: Warm and dry, no rashes Neurologic: Grossly neurologically intact with no obvious asymmetries or abnormalities Extremities: No trauma, well perfused Psych: Cooperative, appropriate insight and affect Course Orders Ordered: ED Orders 08/26/23 02:10 Trop I [Troponin I] Stat 08/26/23 02:15 Trop I [Troponin I] Stat Discontinued Medications Sodium Chloride (Normal Saline 0.9%) 1,000 mls @ 1,000 mls/hr IV BOLUS ONE Stop: 08/26/23 03:02 Last Admin: 08/26/23 02:17 Dose: 1,000 mls/hr Documented By: AB Vital Signs Vital signs: Vital Signs - 8 hr 08/25/23 22:18 08/25/23 22:33 08/25/23 23:00 Temperature 97.4 F L Pulse Rate 120 H 125 H 122 H Respiratory Rate 34 H 28 H 26 H Blood Pressure 148/92 H Pulse Oximetry 100 100 100 Oxygen Delivery Method Room Air 08/25/23 23:00 08/25/23 23:30 08/25/23 23:30 Temperature Pulse Rate 117 H Respiratory Rate 20 Blood Pressure 146/87 H 131/82 Pulse Oximetry 99 Oxygen Delivery Method 08/26/23 00:00 08/26/23 00:00 08/26/23 00:30 Temperature Pulse Rate 108 H Respiratory Rate 24 Blood Pressure 115/74 98/60 Pulse Oximetry 100 Oxygen Delivery Method 08/26/23 00:30 08/26/23 01:00 08/26/23 01:00 Temperature Pulse Rate 100 H 98 H Respiratory Rate 20 21 Blood Pressure 104/67 Pulse Oximetry 99 98 Oxygen Delivery Method Room Air 08/26/23 01:30 03/16/24 01:30 08/26/23 02:00 Temperature Pulse Rate 97 H 106 H Respiratory Rate 13 22 Blood Pressure 103/65 Pulse Oximetry 98 100 Oxygen Delivery Method Room Air Room Air 08/26/23 02:30 Temperature Pulse Rate 93 H Respiratory Rate 19 Blood Pressure Pulse Oximetry 99 Oxygen Delivery Method Room Air Medical Decision Making Lab Data Labs: Lab Results 08/25/23 08/26/23 Range/Units 22:34 02:15 Troponin I < 0.012 < 0.012 (0.01-0.034) ng/mL MDM Narrative Medical decision making narrative: CC: Palpitations with chest pain Complicating co-morbidities: Chiari malformation, chronic headaches, currently on amitriptyline Data collected from: patient Differential considered: Adverse medicine reaction, acute coronary syndrome, pulmonary embolism, anxiety Exam documented above, pertinent findings include: At the time of my exam all of her symptoms have resolved. An exam is entirely benign Lab Test results independently reviewed as above. Pertinent findings: CBC shows a mild leukocytosis at 16.2 without significant left shift Chemistries show normal electrolytes, renal function and no other significant abnormalities Initial and repeat troponin are both nondetectable Independently reviewed EKG: Initial EKG shows sinus tachycardia at a rate of 131. Significantly prolonged Q TC at 581 milliseconds. No acute ischemia Repeat EKG shows sinus rhythm at a rate of 92 with QTC corrected to 432 Treatments: 1 L of normal saline Discussion: 28-year-old woman who has been on 25 mg of amitriptyline for approximately 6 months. Increased to 50 with the 1st dose of 50 mg tonight associated with significant tachycardia, chest pain and throat tightness. No evidence of acute coronary syndrome however she had significantly prolonged QTC which can be complications/side effects of amitriptyline. Within 2 hours symptoms had abated and EKG has returned back to baseline. Troponin and 2 hour repeat troponin are both unremarkable. She is feeling significantly improved and a heart rate is under 100 after fluid resuscitation at this time. I recommended that she stop the amitriptyline and let her neurologist know that it caused prolonged QT that was symptomatic. Explained to her the consequences of this and reasons to stop the amitriptyline. She states that it was not working well anyway and is not concerned about discontinuation. She will follow up with her neurologist Discharge Plan Departure Patient Disposition: Home Clinical Impression: Adverse reaction to antidepressant drug Qualifiers: Encounter type: initial encounter Qualified Code(s): T43.205A - Adverse effect of unspecified antidepressants, initial encounter Activity Restrictions/Additional Instructions: Thank you for coming in tonight I believe you did have an adverse reaction to your amitriptyline. It can cause heart abnormalities which then caused the palpitations, tightness and symptoms that you presented with. The heart abnormality is called prolonged QTc. Normal is well below 500 milliseconds and initially yours was at 581 milliseconds. Within 3 hours, the QTc had normalized and was back down to 432 milliseconds I am going to recommend that you stop the amitriptyline. Please discuss this with your neurologist regarding headache prophylaxis. If you find that you are getting worse or develop any new symptoms, please feel free to return to the emergency department for further evaluation. Prescriptions: No Action ibuprofen 200 mg tablet 400 mg PO Q6H Qty: 60 0RF docusate sodium [Colace] 100 mg capsule 100 mg PO BID Qty: 30 0RF oxycodone 5 mg tablet 5 mg PO Q8H PRN (Reason: pain) Qty: 30 0RF acetaminophen [Tylenol] 325 mg capsule 650 mg PO QID PRN (Reason: pain) Qty: 60 0RF Referrals: Miscellaneous,Doctor, MD [Primary Care Provider] - Stand Alone Forms: Patient Portal/API
[2023-08-26] MEDS: SODIUM CHLORIDE 0.9% 1,000 ML 1000 ML IV (02:17)
[2023-08-26 02:45] LABS: Troponin I < 0.012 ng/mL (0.01-0.034)
[2023-08-26 02:46] LABS: Troponin I < 0.012 ng/mL (0.01-0.034)
== END 2023-08-26 03:40 | disposition home or self-care (01) ==
PROVIDERS: Emergency Provider Emergency Medicine
DX: R07.9 Chest pain, unspecified (principal); R00.0 Tachycardia, unspecified; T43.015A Adverse effect of tricyclic antidepressants, initial encounter
CPT/HCPCS: 84484; 93005; 93010; 99283